=== PATIENT | female | born 1950 | race Hispanic/Latino ===

== ENCOUNTER → 2018-09-29 | Outpatient (CLI) | payer MEDICARE, OTHER | END | disposition home or self-care (01) | LOC: OIH 10:20 | PROVIDERS: ATTEND Family Medicine | DX: G31.9 Degenerative disease of nervous system, unspecified (principal) | CPT/HCPCS: 70450 ==

== ENCOUNTER → 2019-08-08 | Outpatient (CLI) | payer MEDICARE, OTHER | END | disposition home or self-care (01) | LOC: RAH 13:44 | PROVIDERS: ATTEND Family Medicine | DX: Z12.31 Encounter for screening mammogram for malignant neoplasm of breast (principal) | CPT/HCPCS: 77067 ==

== ENCOUNTER 2020-09-29 09:00 | Inpatient (IN) | payer MEDICARE, OTHER ==
[~2020-09-29] VITALS: Ht 160 cm; Wt 68.9 kg
[2020-09-29 14:09] LABS: BASOPHILS % (AUTO) 1.2 % (0.0-5.0); EOSINOPHILS % (AUTO) 3.2 % (0.0-8.0); HEMATOCRIT 41.2 % (36-48); LYMPHOCYTES % (AUTO) 54.5 % (21.0-51.0); MEAN CORPUSCULAR HEMOGLOBIN 31.4 pg (27.0-33.0); MEAN CORPUSCULAR HGB CONC 33.5 g/dL (32.0-36.0); MEAN CORPUSCULAR VOLUME 93.6 fL (79-99); MONOCYTES % (AUTO) 4.5 % (3.0-13.0); NEUTROPHILS % (AUTO) 36.4 % (40.0-77.0); PLATELET COUNT (AUTO) 298 K/uL (130-400); RED CELL DISTRIBUTION WIDTH 13.3 % (11.0-15.5); WHITE BLOOD COUNT (AUTO) 9.2 K/uL (4.8-10.8)
[2020-09-29 14:15] LABS: APPEARANCE,URINE Clear (CLEAR); BILIRUBIN,URINE Negative (NEGATIVE); COLOR,URINE Yellow (YELLOW); GLUCOSE, URINE (UA) Negative (NEGATIVE); KETONES,URINE Negative (NEGATIVE); LEUKOCYTE ESTERASE ,URINE Negative (NEGATIVE); NITRATE,URINE Negative (NEGATIVE); OCCULT BLOOD,URINE Negative (NEGATIVE); PROTEIN,URINE Negative (NEGATIVE); UROBILINOGEN,URINE 0.2 mg/dL (0.2-1.0)
[2020-09-29 14:19] LABS: CREATININE 0.9 mg/dL (0.5-1.5); INR 0.95 (0.85-1.15); POTASSIUM 3.7 mmol/L (3.5-5.1); PROTHROMBIN TIME 10.3 SEC (9.6-11.6)
[2020-09-30 12:38] VITALS: BP 192/74
[2020-10-03] MEDS ORDERED: IBUP-2070 PO (13:51)
[2020-10-03] MEDS ORDERED: OMEG-125 PO (13:51)
[2020-10-06] VITALS (23 sets, daily range): BP systolic 123–172; BP diastolic 56–74
[2020-10-06] MEDS ORDERED: CLINDAMYCIN 900 MG/D5% WATER 50 ML IV SCH (06:00)
[2020-10-06] MEDS ORDERED: LACTATED RINGERS 1000ML 1,000 ML IV ONE (07:29)
[2020-10-06] MEDS ORDERED: KETOROLAC TROMETHAMINE 30MG/ML ONE ×2 (08:10→10:48)
[2020-10-06] MEDS ORDERED: ACETAMINOPHEN EXTRA STRENGTH 500 MG TABLET ONE (08:10)
[2020-10-06] MEDS ORDERED: METOCLOPRAMIDE 10 MG/2 ML VIAL ONE (08:10)
[2020-10-06] MEDS ORDERED: CELECOXIB 200 MG CAP ONE (08:11)
[2020-10-06] MEDS ORDERED: CEFAZOLIN SODIUM 1 GM VIAL ONE ×2 (08:14→08:15)
[2020-10-06] MEDS ORDERED: TRANEXAMIC ACID 1000MG/10ML ONE ×2 (08:15→11:37)
[2020-10-06] MEDS: CEFAZOLIN SODIUM 1 GM VIAL ONE ×2 (08:19→08:50)
[2020-10-06] MEDS ORDERED: SUCCINYLCHOLINE CHLORIDE 20 MG/ML 10 ML VIAL ONE (08:45)
[2020-10-06] MEDS ORDERED: LIDOCAINE PF 2% 5ML ABBOJECT ONE (08:45)
[2020-10-06] MEDS ORDERED: PROPOFOL 10 MG/ML 20ML VIAL IV ONE (08:46)
[2020-10-06] MEDS ORDERED: FENTANYL CITRATE PF 50 MCG/1 ML 2ML VIAL ONE (08:46)
[2020-10-06] MEDS ORDERED: ROCURONIUM 10MG/1ML SYR 10 MG/ML ML ONE ×2 (08:46→10:30)
[2020-10-06] MEDS ORDERED: ROPIVACAINE 0.5% 5MG/ML 30ML IJ ONE (08:49)
[2020-10-06] MEDS ORDERED: GLYCOPYRROLATE 1 MG/5 ML SYRINGE ONE ×2 (09:12→10:54)
[2020-10-06] MEDS ORDERED: LABETALOL HCL 5 MG/ML 20ML VIAL IV ONE (09:40)
[2020-10-06] MEDS ORDERED: NEOSTIGMINE 5MG/5ML SYR IV ONE (10:35)
[2020-10-06] MEDS: ACETAMINOPHEN EXTRA STRENGTH 500 MG TABLET PO SCH ×2 (10:45→19:53)
[2020-10-06] MEDS ORDERED: TRAMADOL HCL 50 MG TABLET PO PRN (10:45)
[2020-10-06] MEDS ORDERED: POTASSIUM CHLORIDE 20MEQ/100ML 100 ML IV PRN (10:45)
[2020-10-06] MEDS ORDERED: ONDANSETRON HCL 4 MG/2 ML VIAL IVP PRN (10:45)
[2020-10-06] MEDS ORDERED: CALCIUM CARBONATE 500 MG TABLET PO PRN (10:45)
[2020-10-06] MEDS ORDERED: KETOROLAC TROMETHAMINE 15MG/ML IV PRN (10:45)
[2020-10-06] MEDS ORDERED: POTASSIUM CHLORIDE 20 MEQ ERTAB PO PRN (10:45)
[2020-10-06] MEDS ORDERED: TEMAZEPAM 15 MG CAPSULE PO PRN (10:45)
[2020-10-06] MEDS ORDERED: POTASSIUM CHLORIDE 10% ELIXIR 20 MEQ/15 ML UDCUP PO PRN (10:45)
[2020-10-06] MEDS ORDERED: DiphenhydrAMINE HCL 50 MG/ML VIAL IVP PRN (10:45)
[2020-10-06] MEDS ORDERED: OXYCODONE HCL 5 MG TAB PO PRN (10:45)
[2020-10-06] MEDS: SODIUM CHLORIDE 0.9% 1000ML 1,000 ML IV SCH ×2 (10:45→20:45)
[2020-10-06] MEDS ORDERED: FERROUS FUMARATE 324 MG TABLET PO PRN (10:45)
[2020-10-06] MEDS ORDERED: LIDOCAINE HCL-MPF 1% 2ML VIAL IV PRN (10:45)
[2020-10-06] MEDS ORDERED: ONDANSETRON HCL 4 MG/2 ML VIAL ONE (10:47)
[2020-10-06] MEDS ORDERED: MEPERIDINE-PF 25 MG/ML SYG ONE ×3 (10:48→11:54)
[2020-10-06] MEDS: CEFAZOLIN SODIUM 1 GM VIAL IVP SCH ×2 (16:11→23:21)
[2020-10-06] MEDS: OXYCODONE HCL 5 MG TAB PO PRN ×2 (16:13→20:02)
[2020-10-06] MEDS: FAMOTIDINE 20MG TAB 20 MG TAB PO SCH (20:01)
[2020-10-06] MEDS: ASPIRIN 81MG TAB.CHEW PO SCH (20:01)
[2020-10-06] MEDS: PREGABALIN 25 MG CAP PO SCH (20:02)
[2020-10-06] MEDS: CELECOXIB 200 MG CAP PO SCH (20:02)
[2020-10-06] MEDS ORDERED: HYDROMORPHONE HCL 2 MG/ML VIAL IVP PRN (20:30)
[2020-10-06] MEDS ORDERED: HYDROMORPHONE HCL 2 MG/ML VIAL ONE (20:34)
[2020-10-06] MEDS: PHARMACY COMMUNICATION MISC SCH (20:45)
[2020-10-06] MEDS: HYDROMORPHONE 1 MG/1 ML AMP IVP PRN (23:29)
[2020-10-07] MEDS: PHARMACY COMMUNICATION MISC SCH ×5 (00:45→20:45)
[2020-10-07] MEDS: HYDROMORPHONE 1 MG/1 ML AMP IVP PRN ×2 (01:01→02:49)
[2020-10-07] MEDS: ACETAMINOPHEN EXTRA STRENGTH 500 MG TABLET PO SCH ×3 (02:49→22:07)
[2020-10-07 03:29] VITALS: BP 156/56
[2020-10-07] MEDS ORDERED: TRAMADOL HCL 50 MG TABLET PO PRN (03:30)
[2020-10-07 04:10] LABS: HEMATOCRIT 28.7 % (36-48); MEAN CORPUSCULAR HEMOGLOBIN 30.8 pg (27.0-33.0); MEAN CORPUSCULAR HGB CONC 33.4 g/dL (32.0-36.0); RED BLOOD CELL COUNT(AUTO) 3.12 MIL/uL (4.00-5.50); RED CELL DISTRIBUTION WIDTH 13.1 % (11.0-15.5); WHITE BLOOD COUNT (AUTO) 11.6 K/uL (4.8-10.8)
[2020-10-07 04:26] LABS: CREATININE 0.8 mg/dL (0.5-1.5); POTASSIUM 3.4 mmol/L (3.5-5.1)
[2020-10-07] MEDS: SODIUM CHLORIDE 0.9% 1000ML 1,000 ML IV SCH (05:55)
[2020-10-07 08:10] VITALS: BP 157/58
[2020-10-07] MEDS: FAMOTIDINE 20MG TAB 20 MG TAB PO SCH ×2 (08:47→19:50)
[2020-10-07] MEDS: ASPIRIN 81MG TAB.CHEW PO SCH ×2 (08:48→19:50)
[2020-10-07] MEDS: CELECOXIB 200 MG CAP PO SCH ×2 (08:48→19:50)
[2020-10-07] MEDS: PREGABALIN 25 MG CAP PO SCH ×2 (08:48→19:50)
[2020-10-07] MEDS: POLYETHYLENE GLYCOL 3350 17 GM POWD.PACK PO SCH (08:49)
[2020-10-07] MEDS: OXYCODONE HCL 5 MG TAB PO PRN ×2 (08:49→19:49)
[2020-10-07 11:32] VITALS: BP 182/63
[2020-10-07 16:30] VITALS: BP 176/63
[2020-10-07 20:04] VITALS: BP 145/56
[2020-10-07 23:42] VITALS: BP 130/50
[2020-10-08] MEDS: PHARMACY COMMUNICATION MISC SCH (00:45)
[2020-10-08 03:49] VITALS: BP 124/82
[2020-10-08] MEDS: ACETAMINOPHEN EXTRA STRENGTH 500 MG TABLET PO SCH ×2 (05:50→13:34)
[2020-10-08 08:00] VITALS: BP 136/66
[2020-10-08] MEDS: ASPIRIN 81MG TAB.CHEW PO SCH (09:12)
[2020-10-08] MEDS: CELECOXIB 200 MG CAP PO SCH (09:12)
[2020-10-08] MEDS: PREGABALIN 25 MG CAP PO SCH (09:12)
[2020-10-08] MEDS: FAMOTIDINE 20MG TAB 20 MG TAB PO SCH (09:13)
[2020-10-08] MEDS: OXYCODONE HCL 5 MG TAB PO PRN (09:13)
[2020-10-08] MEDS: POLYETHYLENE GLYCOL 3350 17 GM POWD.PACK PO SCH (09:13)
[2020-10-08 11:00] VITALS: BP 147/53
[2020-10-08] MEDS ORDERED: ASPI-1005 PO (12:08)
[2020-10-08] MEDS ORDERED: HYDR-4457 PO (12:08)
[2020-10-09] MEDS ORDERED: BISACODYL 10 MG SUPP.RECT RC PRN (10:45)
== END 2020-10-08 17:30 | disposition home health service (06) | DRG 470 ==
LOC: DAHIP 10-06 07:02 → EDSTATUS 10-06 09:00 → 3AH 10-06 12:23
PROVIDERS: ADMIT Orthopaedic Surgery; ATTEND Orthopaedic Surgery
PROC: 0SRC0J9 Replacement of Right Knee Joint with Synthetic Substitute, Cemented, Open Approach (ICD-10-PCS; principal; 2020-10-06 08:47)
DX: M17.11 Unilateral primary osteoarthritis, right knee (principal); D64.9 Anemia, unspecified; E78.5 Hyperlipidemia, unspecified; Z20.828 Contact with and (suspected) exposure to other viral communicable diseases; E87.6 Hypokalemia; G89.29 Other chronic pain; M21.061 Valgus deformity, not elsewhere classified, right knee; I10 Essential (primary) hypertension; Z82.3 Family history of stroke; Z90.710 Acquired absence of both cervix and uterus; Z88.0 Allergy status to penicillin
CPT/HCPCS: 36415; 80048; 81003; 85025; 85027; 85610; 87641; 88305; 88311; 97039; G0378; J0330; J0690; J1170; J1885; J2001; J2175; J2405; J2704; J2710; J2765; J2795; J3010; J3490; J7120; U0003

== ENCOUNTER 2021-06-20 12:24 | Emergency (ER) | payer MEDICARE, OTHER ==
[~2021-06-20] VITALS: Ht 154.9 cm; Wt 68.0 kg
[~2021-06-20 12:24] MED LIST: ASPI-1005 PO; HYDR-4457 PO; OMEG-125 PO
[2021-06-20 12:46] LABS: EOSINOPHILS % (AUTO) 2.7 % (0.0-8.0); HEMATOCRIT 39.7 % (36-48); LYMPHOCYTES % (AUTO) 43.9 % (21.0-51.0); MEAN CORPUSCULAR HEMOGLOBIN 30.5 pg (27.0-33.0); MEAN CORPUSCULAR HGB CONC 33.5 g/dL (32.0-36.0); MEAN CORPUSCULAR VOLUME 91.1 fL (79-99); MONOCYTES % (AUTO) 6.3 % (3.0-13.0); NEUTROPHILS % (AUTO) 45.8 % (40.0-77.0); PLATELET COUNT (AUTO) 274 K/uL (130-400); RED BLOOD CELL COUNT(AUTO) 4.36 MIL/uL (4.00-5.50); RED CELL DISTRIBUTION WIDTH 13.8 % (11.0-15.5)
[2021-06-20 13:01] LABS: CARBON DIOXIDE 26 mmol/L (21-32); CHLORIDE 103 mmol/L (101-111); GLOMERULAR FILTR. RATE CALC 58 mL/min (>60); GLUCOSE,RANDOM 99 mg/dL (70-105); POTASSIUM 3.7 mmol/L (3.5-5.1); SODIUM SERUM 142 mmol/L (136-145); UREA NITROGEN, BLOOD 14 mg/dL (7-18)
[2021-06-20 13:12] LABS: ALANINE AMINOTRANSFERASE 31 U/L (12-78); ALBUMIN 4.2 g/dL (3.5-5.0); ASPARTATE AMINOTRANSFERASE 23 U/L (10-37); BILIRUBIN,TOTAL 0.3 mg/dL (0.2-1.0); CREATINE KINASE, TOTAL 153 U/L (21-232); MYOGLOBIN 42 ng/mL (10-92); TOTAL PROTEIN, SERUM 8.5 g/dL (6.0-8.3); TROPONIN I < 0.04 ng/mL (0.00-0.06)
[2021-06-20] MEDS ORDERED: IOHEXOL 350 MG/ML 100ML INFUS..BTL IV ONE (13:24)
[2021-06-20 13:30] VITALS: BP 132/74
[2021-06-20 13:31] LABS: PROTHROMBIN TIME 10.9 SEC (9.6-11.6)
[2021-06-20 13:33] LABS: PARTIAL THROMBOPLASTIN TIME 25.9 SEC (26.3-35.5)
[2021-06-20 13:45] VITALS: BP 126/80
[2021-06-20 14:00] VITALS: BP 136/64
[2021-06-20 14:30] VITALS: BP 176/86
[2021-06-20 15:00] VITALS: BP 138/72
[2021-06-20] MEDS ORDERED: ACETAMINOPHEN 325 MG TAB PO ONE (15:00)
[2021-06-20 15:24] VITALS: BP 162/70
== END 2021-06-20 16:43 | disposition home or self-care (01) ==
LOC: EDH 12:24
DX: S16.1XXA Strain of muscle, fascia and tendon at neck level, initial encounter (principal); S09.90XA Unspecified injury of head, initial encounter; M54.9 Dorsalgia, unspecified; M25.561 Pain in right knee; Z88.0 Allergy status to penicillin; Z79.82 Long term (current) use of aspirin; W18.39XA Other fall on same level, initial encounter; Y93.89 Activity, other specified; Y92.89 Other specified places as the place of occurrence of the external cause; Y99.8 Other external cause status
CPT/HCPCS: 36415; 70450; 71260; 72125; 74177; 80053; 82550; 83874; 84484; 85025; 85610; 85730; 93005; 99285; Q9967

== ENCOUNTER → 2021-09-23 | Outpatient (CLI) | payer OTHER | END | disposition home or self-care (01) | LOC: OIH 10:55 | PROVIDERS: ATTEND Internal Medicine Cardiovascular Disease | DX: Z13.6 Encounter for screening for cardiovascular disorders (principal) | CPT/HCPCS: 75571 ==

== ENCOUNTER → 2022-04-12 | Outpatient (CLI) | payer OTHER | END | disposition home or self-care (01) | LOC: RAH 09:04 | PROVIDERS: ATTEND Family Medicine | DX: Z12.31 Encounter for screening mammogram for malignant neoplasm of breast (principal) | CPT/HCPCS: 77067 ==

== ENCOUNTER → 2024-04-06 | Outpatient (CLI) | payer OTHER | END | disposition home or self-care (01) | LOC: RAH 12:54 | PROVIDERS: ATTEND Family Medicine | DX: Z12.31 Encounter for screening mammogram for malignant neoplasm of breast (principal); R92.323 Mammographic fibroglandular density, bilateral breasts | CPT/HCPCS: 77067 ==